=== PATIENT | male | born 1960 | race African-American/Black ===

== ENCOUNTER 2016-08-13 15:10 | Emergency (ER) | payer OTHER ==
[~2016-08-13] VITALS: Ht 182.9 cm; Wt 73.0 kg
[~2016-08-13 15:10] MED LIST: AMLO5 PO; AUGM500T7 PO; DOXY100 PO; Z.0.NO CURRENT MEDS
[2016-08-13 15:30] VITALS: BP 129/71; PULSE 88; RESP 16; TEMP 98.1; O2SAT 97
[2016-08-13] MEDS ORDERED: TRAZ100T4 PO (15:59)
[2016-08-13] MEDS ORDERED: AMLO5TAB2 PO (15:59)
[2016-08-13] MEDS ORDERED: TRAM50TA PO (15:59)
--- NOTE | 2016-08-13 16:09 | PD ---
HPI Chief Complaint: Psychiatric Symptoms Time Seen by Provider: 16:08 Travel History International Travel<30 days: No Contact w/Intl Traveler<30days: No Traveled to known affect area: No History of Present Illness HPI 55-year-old male presents to the emergency Department under Pruitt act for psychiatric evaluation. Patient reports depression for the past week. He left a message on her [employer] machine stating that he was going to kill himself. He states his plan was to overdose on pills. He states he was going to take his trazodone. However, he states he did not get a chance before the police placed him under Pruitt act. The patient states he had a suicide attempt last year in November where he overdosed on pills and was intubated. The patient states that he snorts cocaine. He states he has been drinking alcohol heavily for the past month. Patient denies any medical complaints at this time. PFSH Past Medical History Arthritis: No Asthma: No Depression: Yes Heart Rhythm Problems: No Cardiovascular Problems: No High Cholesterol: No Chest Pain: No Congestive Heart Failure: No COPD: No Cerebrovascular Accident: No Diminished Hearing: No GERD: No Genitourinary: No Hiatal Hernia: No Kidney Stones: No Musculoskeletal: No Neurologic: No Reproductive: No Respiratory: No Migraines: No Renal Failure: No Seizures: No Sleep Apnea: No Ulcer: No Past Surgical History Abdominal Surgery: No Cardiac Surgery: No Ear Surgery: No Endocrine Surgery: No Eye Surgery: No Genitourinary Surgery: No Gynecologic Surgery: No Oral Surgery: No Thoracic Surgery: No Other Surgery: Yes (INGUNIAL HERNIA) Social History Alcohol Use: Yes Tobacco Use: No (PT DENIES) Substance Use: No Allergies-Medications (Allergen,Severity, Reaction): Coded Allergies: No Known Allergies (Verified , 01/11/07) Reported Meds & Prescriptions Reported Meds & Active Scripts Active Reported Trazodone (Trazodone HCl) 100 Mg Tab 100 Mg PO HS Tramadol (Tramadol HCl) 50 Mg Tab 50 Mg PO Q6H PRN Amlodipine (Amlodipine Besylate) 5 Mg Tab 5 Mg PO DAILY Review of Systems Except as stated in HPI: all other systems reviewed are Neg Physical Exam Narrative GENERAL: Well-nourished, well-developed male patient, ambulatory. Afebrile. SKIN: Focused skin assessment warm/dry. HEAD: Normocephalic. Atraumatic. EYES: No scleral icterus. No injection or drainage. NECK: Supple, trachea midline. No JVD or lymphadenopathy. CARDIOVASCULAR: Regular rate and rhythm without murmurs, gallops, or rubs. RESPIRATORY: Breath sounds equal bilaterally. No accessory muscle use. Lungs sounds are clear to auscultation. GASTROINTESTINAL: Abdomen soft, non-tender, nondistended. MUSCULOSKELETAL: No cyanosis, or edema. PSYCHIATRIC: No delusional thought processes. No hallucinations. Data Data Last Documented VS Vital Signs Date Time Temp Pulse Resp B/P Pulse Ox O2 Delivery O2 Flow Rate FiO2 08/13/16 15:30 98.1 88 16 129/71 97 Orders Complete Blood Count With Diff (08/13/16 15:32) Basic Metabolic Panel (Bmp) (08/13/16 15:32) Psych Screen (08/13/16 15:32) Drug Screen, Random Urine (08/13/16 15:32) Alcohol (Ethanol) (08/13/16 16:03) Tylenol (Acetaminophen) (08/13/16 16:03) Comprehensive Metabolic Panel (08/13/16 16:03) Salicylates (Aspirin) (08/13/16 16:03) Ns (Bolus) Inj (08/13/16 18:15) Labs Laboratory Tests Test 08/13/16 08/13/16 08/13/16 15:36 15:40 16:18 White Blood Count 5.6 TH/MM3 Red Blood Count 5.46 MIL/MM3 Hemoglobin 15.5 GM/DL Hematocrit 45.8 % Mean Corpuscular Volume 84.0 FL Mean Corpuscular Hemoglobin 28.5 PG Mean Corpuscular Hemoglobin 33.9 % Concent Red Cell Distribution Width 13.4 % Platelet Count 207 TH/MM3 Mean Platelet Volume 8.3 FL Neutrophils (%) (Auto) 68.2 % Lymphocytes (%) (Auto) 21.7 % Monocytes (%) (Auto) 7.7 % Eosinophils (%) (Auto) 1.9 % Basophils (%) (Auto) 0.5 % Neutrophils # (Auto) 3.8 TH/MM3 Lymphocytes # (Auto) 1.2 TH/MM3 Monocytes # (Auto) 0.4 TH/MM3 Eosinophils # (Auto) 0.1 TH/MM3 Basophils # (Auto) 0.0 TH/MM3 CBC Comment DIFF FINAL Differential Comment Sodium Level 144 MEQ/L 146 MEQ/L Potassium Level 3.8 MEQ/L 4.5 MEQ/L Chloride Level 108 MEQ/L 108 MEQ/L Carbon Dioxide Level 28.8 MEQ/L 33.4 MEQ/L Anion Gap 7 MEQ/L 5 MEQ/L Blood Urea Nitrogen 19 MG/DL 20 MG/DL Creatinine 1.36 MG/DL 1.40 MG/DL Estimat Glomerular Filtration 66 ML/MIN 64 ML/MIN Rate Random Glucose 147 MG/DL 83 MG/DL Calcium Level 8.7 MG/DL 9.2 MG/DL Urine Opiates Screen NEG Urine Barbiturates Screen NEG Urine Amphetamines Screen NEG Urine Benzodiazepines Screen NEG Urine Cocaine Screen POS Urine Cannabinoids Screen NEG Total Bilirubin 0.4 MG/DL Aspartate Amino Transf 14 U/L (AST/SGOT) Alanine Aminotransferase 20 U/L (ALT/SGPT) Alkaline Phosphatase 86 U/L Total Protein 7.5 GM/DL Albumin 4.0 GM/DL Salicylates Level LESS THAN 1.7 MG/DL Acetaminophen Level LESS THAN 2.0 MCG/ML Ethyl Alcohol Level LESS THAN 3 MG/DL MDM Medical Decision Making Medical Screen Exam Complete: Yes Emergency Medical Condition: Yes Medical Record Reviewed: Yes Differential Diagnosis Suicidal ideation versus depression versus substance abuse versus anxiety Narrative Course 55-year-old male presents to the emergency Department a Pruitt act for psychiatric evaluation. Patient reports depression and suicidal ideation. CBC , CMP, alcohol level, urine drug screen, salicylate level, Tylenol level are ordered and pending. CBC is unremarkable. CMP shows elevated BUN and creatinine at 20/1.40, no acute abnormalities. Alcohol level is less than 3. UDS is positive for cocaine. Salicylate level is 1.7. Tylenol level is less than 2.0. Patient is given 1 L NS IVF for dehydration, elevated BUN/creatinine. Patient is medically cleared for psychiatric screening and disposition. Mental health screening discussed with the patient. Psychiatric screen ordered. Diagnosis Primary Impression: Depression Qualified Code: F32.9 - Depression, unspecified depression type Additional Impressions: Suicidal ideation Cocaine abuse Additional Instructions: Patient is medically cleared for psychiatric screening and disposition. Condition: Stable Chasity Mejia MARLENY August 13, 2016 16:09
[2016-08-13 16:12] LABS: AUTOMATED NEUTROPHIL # 3.8 TH/MM3 (1.8-7.7); BASOPHIL % 0.5 % (0.0-2.0); EOSINOPHIL # 0.1 TH/MM3 (0-0.4); EOSINOPHIL % 1.9 % (0.0-4.0); HEMATOCRIT 45.8 % (39.0-51.0); HEMO FLAGS DIFF FINAL; LYMPH % 21.7 % (9.0-44.0); LYMPHOCYTE # 1.2 TH/MM3 (1.0-4.8); MEAN CORPUSCULAR HEMOGLOBIN 28.5 PG (27.0-34.0); MEAN CORPUSCULAR HGB CONC 33.9 % (32.0-36.0); MONO % 7.7 % (0.0-8.0); NEUT % 68.2 % (16.0-70.0); PLATELET COUNT 207 TH/MM3 (150-450); RED BLOOD COUNT 5.46 MIL/MM3 (4.50-5.90); RED CELL DISTRIBUTION WIDTH 13.4 % (11.6-17.2); WHITE BLOOD COUNT 5.6 TH/MM3 (4.0-11.0)
[2016-08-13 16:26] LABS: BICARBONATE 28.8 MEQ/L (21.0-32.0); POTASSIUM 3.8 MEQ/L (3.5-5.1)
[2016-08-13 17:01] LABS: ANION GAP 5 MEQ/L (5-15); AST (GOT) 14 U/L (15-37); BICARBONATE 33.4 MEQ/L (21.0-32.0); BLOOD UREA NITROGEN 20 MG/DL (7-18); CHLORIDE 108 MEQ/L (98-107); GLOMERULAR FILTRATION RATE 64 ML/MIN (>89); POTASSIUM 4.5 MEQ/L (3.5-5.1); SODIUM (NA) 146 MEQ/L (136-145)
[2016-08-13 17:05] LABS: ACETAMINOPHEN LESS THAN 2.0 MCG/ML (10.0-30.0); ALKALINE PHOSPHATASE 86 U/L (45-117); ALT (GPT) 20 U/L (12-78); TOTAL BILIRUBIN ADULT 0.4 MG/DL (0.2-1.0)
[2016-08-13 17:09] LABS: AMPHETAMINE, URINE NEG (NEG); BARBITURATES, URINE NEG (NEG); COCAINE, URINE POS (NEG)
[2016-08-13] MEDS ORDERED: SODIUM CHLOR 0.9% 1000 ML INJ 1,000 ML IV ONE (18:15)
[2016-08-13 22:20] VITALS: BP 164/118; PULSE 85; RESP 17; O2SAT 98
[2016-08-13] MEDS ORDERED: amLODIPine BESYLATE 5 MG TAB PO ONE (22:45)
[2016-08-14 02:02] VITALS: BP 141/80; PULSE 65; RESP 18; O2SAT 97
[2016-08-14 06:25] VITALS: BP 151/87; PULSE 63; RESP 18; O2SAT 98
--- NOTE | 2016-08-14 12:41 | PD ---
History of Present Illness Chief Complaint: Psychiatric Symptoms Time Seen by Provider: 12:15 Travel History International Travel<30 Days: No Contact w/Intl Traveler<30days: No Known affected area: No Legal Status Legal Status: Pruitt Act Pruitt Act Signed By: Connie Pruitt Act Comment: BA signed by: MASSIMO OMALLEY Badge#[id number], Case#[id number] History of Present Illness: 55-year-old male with history of daily cocaine use for the last 6 months, presenting under a Pruitt act with suicidal threats. Patient gives a contradictory and inconsistent story. Patient provides an inconsistent and contradictory story. He states he wants to kill himself and that he is too embarrassed to ask for help but at the same time he is calling his sister to say goodbye and indicating he has a lot of people who care about him. He has spent all of his income to buy cocaine and uses it on a daily basis but he takes no responsibility for this and instead tells this physician if I don't admit him to psychiatry I will have his blood on my hands. Patient encouraged to go to [facility] because his primary problem is cocaine abuse and this facility is not licensed for rehabilitation. Patient not interested in going to [facility] and continues to threaten self-harm if he is discharged. It is noted that he is finishing his entire lunch and is not interested in killing himself or leaving at this time. PFSH Past Medical History Arthritis: No Asthma: No Depression: Yes Heart Rhythm Problems: No Cardiovascular Problems: No High Cholesterol: No Chest Pain: No Congestive Heart Failure: No COPD: No Cerebrovascular Accident: No Diminished Hearing: No GERD: No Genitourinary: No Hiatal Hernia: No Kidney Stones: No Musculoskeletal: No Neurologic: No Reproductive: No Respiratory: No Migraines: No Renal Failure: No Seizures: No Sleep Apnea: No Ulcer: No Past Surgical History Abdominal Surgery: No Cardiac Surgery: No Ear Surgery: No Endocrine Surgery: No Eye Surgery: No Genitourinary Surgery: No Gynecologic Surgery: No Oral Surgery: No Thoracic Surgery: No Other Surgery: Yes (INGUNIAL HERNIA) Psychiatric History Psychiatric History Hx Psychiatric Treatment: Yes. Patient has a history of substance abuse treatment and has been using drugs intermittently for years. History of Inpatient Treatment: Yes Guns or firearms in home: No Social History Hx Alcohol Use: Yes Hx Tobacco Use: No (PT DENIES) Hx Substance Use: No Substance Use Type: Crack Other Substances Used: Pt says he has been using crack fro the last 6 months everyday. Hx of Substance Use Treatment: Yes Allergies-Medications (Allergen,Severity, Reaction): Coded Allergies: No Known Allergies (Verified , 01/11/07) Reported Meds & Prescriptions Reported Meds & Active Scripts Active Reported Trazodone (Trazodone HCl) 100 Mg Tab 100 Mg PO HS Tramadol (Tramadol HCl) 50 Mg Tab 50 Mg PO Q6H PRN Amlodipine (Amlodipine Besylate) 5 Mg Tab 5 Mg PO DAILY Review of Systems ROS Limitations: Uncooperative Exam Alert: Yes [place]: Person, Place, Date, Situation Mood: Oppositional Affect: Appropriate Speech: Clear, Logical Eye Contact: Normal Memory Intact: Immediate, Recent, Remote Suicidal: Plan Insight/Judgement Adequate except with regard to drug abuse. MDM Medical Decision Making Medical Record Reviewed: Yes Assessment/Plan This physician spoke with the patient and the patient's nurse. Patient remains threatening to harm himself if released. This physician feels it is counter therapeutic to admit patient under the circumstances. Patient needs drug treatment and takes no responsibility or acknowledgment for his use of drugs on a daily basis. Even though the patient is still at risk for acting out, this physician feels it is counter therapeutic to admit him. He was provided with bus pass and referral to [facility]. Orders Complete Blood Count With Diff (08/13/16 15:32) Basic Metabolic Panel (Bmp) (08/13/16 15:32) Psych Screen (08/13/16 15:32) Drug Screen, Random Urine (08/13/16 15:32) Alcohol (Ethanol) (08/13/16 16:03) Tylenol (Acetaminophen) (08/13/16 16:03) Comprehensive Metabolic Panel (08/13/16 16:03) Salicylates (Aspirin) (08/13/16 16:03) Sodium Chlor 0.9% 1000 Ml Inj (Ns 1000 M (08/13/16 18:15) Diet Regular Basic (08/14/16 Breakfast) Amlodipine (Norvasc) (08/13/16 22:45) Diet Regular Basic (08/14/16 Lunch) Results Vital Signs Date Time Temp Pulse Resp B/P Pulse Ox O2 Delivery O2 Flow Rate FiO2 08/14/16 06:25 63 18 151/87 98 Room Air 08/14/16 02:02 65 18 141/80 97 Room Air 08/13/16 22:20 85 17 164/118 98 Room Air 08/13/16 15:30 98.1 88 16 129/71 97 Laboratory Tests Test 08/13/16 08/13/16 08/13/16 15:36 15:40 16:18 White Blood Count 5.6 Red Blood Count 5.46 Hemoglobin 15.5 Hematocrit 45.8 Mean Corpuscular Volume 84.0 Mean Corpuscular Hemoglobin 28.5 Mean Corpuscular Hemoglobin 33.9 Concent Red Cell Distribution Width 13.4 Platelet Count 207 Mean Platelet Volume 8.3 Neutrophils (%) (Auto) 68.2 Lymphocytes (%) (Auto) 21.7 Monocytes (%) (Auto) 7.7 Eosinophils (%) (Auto) 1.9 Basophils (%) (Auto) 0.5 Neutrophils # (Auto) 3.8 Lymphocytes # (Auto) 1.2 Monocytes # (Auto) 0.4 Eosinophils # (Auto) 0.1 Basophils # (Auto) 0.0 CBC Comment DIFF FINAL Differential Comment Sodium Level 144 146 Potassium Level 3.8 4.5 Chloride Level 108 108 Carbon Dioxide Level 28.8 33.4 Anion Gap 7 5 Blood Urea Nitrogen 19 20 Creatinine 1.36 1.40 Estimat Glomerular Filtration 66 64 Rate Random Glucose 147 83 Calcium Level 8.7 9.2 Urine Opiates Screen NEG Urine Barbiturates Screen NEG Urine Amphetamines Screen NEG Urine Benzodiazepines Screen NEG Urine Cocaine Screen POS Urine Cannabinoids Screen NEG Total Bilirubin 0.4 Aspartate Amino Transf 14 (AST/SGOT) Alanine Aminotransferase 20 (ALT/SGPT) Alkaline Phosphatase 86 Total Protein 7.5 Albumin 4.0 Salicylates Level LESS THAN 1.7 Acetaminophen Level LESS THAN 2.0 Ethyl Alcohol Level LESS THAN 3 Diagnosis Primary Impression: Depression Additional Impressions: Cocaine abuse Suicidal ideation Additional Instructions: Patient is medically cleared for psychiatric screening and disposition. Condition: Stable Problem Qualifiers Primary Impression: Depression Qualified Code: F32.9 - Depression, unspecified depression type Paulo Coleman MD August 14, 2016 12:40
[2016-08-14 13:25] VITALS: BP 151/87; PULSE 63; RESP 18; O2SAT 98
== END 2016-08-14 13:39 | disposition home or self-care (01) ==
LOC: NEPC 15:10 → NEPJ 08-14 13:39
DX: F32.9 Major depressive disorder, single episode, unspecified (principal); R45.851 Suicidal ideations; F14.10 Cocaine abuse, uncomplicated
CPT/HCPCS: 80053; 80307; 85025; 99285; J7030; 80048

== ENCOUNTER 2016-12-13 09:03 | Observation (INO) | payer OTHER ==
[~2016-12-13] VITALS: Ht 182.9 cm; Wt 80.0 kg
[~2016-12-13 09:03] MED LIST changes: -AMLO5 PO; +AMLO5TAB2 PO; -AUGM500T7 PO; -DOXY100 PO; +TRAM50TA PO; +TRAZ100T4 PO; -Z.0.NO CURRENT MEDS
[2016-12-13 09:05] VITALS: BP 143/95; PULSE 109; RESP 18; TEMP 98.6
[2016-12-13] MEDS ORDERED: SODIUM CHLORIDE 0.9% FLUSH 10 ML FLUSH IVF PRN (09:15)
[2016-12-13] MEDS ORDERED: ACETAMINOPHEN 325 MG TAB PO ONE (09:15)
[2016-12-13] MEDS ORDERED: DICL1GEL7 TOPICAL (09:23)
[2016-12-13] MEDS ORDERED: MIRT1TAB PO (09:23)
[2016-12-13] MEDS ORDERED: AMLO10TA2 PO (09:23)
[2016-12-13] MEDS ORDERED: ENAL20TA PO (09:23)
[2016-12-13] MEDS ORDERED: LAMO100T PO (09:23)
[2016-12-13] MEDS ORDERED: ASPI81CH CHEW (09:23)
[2016-12-13] MEDS ORDERED: OMEP20TA PO (09:23)
[2016-12-13] MEDS ORDERED: SILD20TA11 PO (09:23)
[2016-12-13] MEDS ORDERED: TRAZ100T6 PO (09:23)
[2016-12-13] MEDS ORDERED: PARO40TA2 PO (09:23)
[2016-12-13] MEDS ORDERED: SENN8.6T81 PO (09:23)
[2016-12-13] MEDS ORDERED: CALCTAB33 PO (09:23)
[2016-12-13] MEDS ORDERED: GABA100C4 PO (09:23)
[2016-12-13 09:31] LABS: AUTOMATED NEUTROPHIL # 3.8 TH/MM3 (1.8-7.7); BASOPHIL % 0.4 % (0.0-2.0); EOSINOPHIL # 0.1 TH/MM3 (0-0.4); EOSINOPHIL % 2.1 % (0.0-4.0); HEMATOCRIT 37.5 % (39.0-51.0); HEMO FLAGS DIFF FINAL; LYMPH % 27.8 % (9.0-44.0); LYMPHOCYTE # 1.8 TH/MM3 (1.0-4.8); MEAN CORPUSCULAR HEMOGLOBIN 29.4 PG (27.0-34.0); MEAN CORPUSCULAR HGB CONC 35.4 % (32.0-36.0); MONO % 10.1 % (0.0-8.0); NEUT % 59.6 % (16.0-70.0); PLATELET COUNT 202 TH/MM3 (150-450); RED BLOOD COUNT 4.52 MIL/MM3 (4.50-5.90); WHITE BLOOD COUNT 6.4 TH/MM3 (4.0-11.0)
--- NOTE | 2016-12-13 09:34 | RADRPT ---
EXAM DATE/TIME: 12/13/2016 09:29 [facility] COMPARISON: No previous studies available for comparison. INDICATIONS : Chest pain. MEDICAL HISTORY : Hypertension. Diabetes mellitus type II. Carcinoma, prostatic. SURGICAL HISTORY : None. ENCOUNTER: Initial ACUITY: 1 day PAIN SCORE: 2/10 LOCATION: chest midline. FINDINGS: A single view of the chest demonstrates the lungs to be symmetrically aerated without evidence of mas s, infiltrate or effusion. The cardiomediastinal contours are unremarkable. Osseous structures are intact. CONCLUSION: No acute disease. Román Snyder MD on December 13, 2016 at 9:33 Board Certified Radiologist. This report was verified electronically.
[2016-12-13 09:40] LABS: APTT (PATIENT) 23.8 SEC (24.3-30.1); INTERNATIONAL NORMALIZED RATIO 0.9 RATIO
[2016-12-13 09:45] LABS: ANION GAP 5 MEQ/L (5-15); BICARBONATE 29.9 MEQ/L (21.0-32.0); CHLORIDE 102 MEQ/L (98-107); MAGNESIUM 2.1 MG/DL (1.5-2.5); POTASSIUM 4.1 MEQ/L (3.5-5.1); SODIUM (NA) 137 MEQ/L (136-145)
--- NOTE | 2016-12-13 10:01 | PD ---
HPI Chief Complaint: Chest Pain Time Seen by Provider: 09:14 Travel History International Travel<30 days: No Contact w/Intl Traveler<30days: No Traveled to known affect area: No History of Present Illness HPI 56-year-old male came to the emergency room with history of chest pain that is left-sided and radiating down his left arm. Patient says that he was at his primary care's clinic at the [facility] when he mentioned about this pain and he was asked to come to the emergency room. Currently patient says he's chest pain -free. He was given 2 nitroglycerin on route by the EMS which has given him a headache. He took 3 of 325 mg aspirin on his own. Patient says that he has never had this kind of pain before. He used to smoke crack cocaine and did it on and off for 20 years but stopped doing it over past 6 months. He has never had a stress test or heart catheterization. Patient has hypertension and borderline diabetes. He is not on any medications currently for the diabetes. His blood sugar was over 200 when checked by EMS. Patient is not a smoker. He was slightly tachycardic when he arrived. [facility] Past Medical History Narrative Medical List of his past medical, surgical, social and family history is reviewed from the nursing note. Arthritis: No Asthma: No Depression: Yes Heart Rhythm Problems: No Cardiovascular Problems: Yes High Cholesterol: No Chest Pain: No Congestive Heart Failure: No COPD: No Cerebrovascular Accident: No Diabetes: Yes Patient Takes Glucophage: No Diminished Hearing: No GERD: No Genitourinary: No Hiatal Hernia: No Hypertension: Yes Kidney Stones: No Musculoskeletal: No Neurologic: No Reproductive: No Respiratory: No Migraines: No Renal Failure: No Seizures: No Sleep Apnea: No Ulcer: No Past Surgical History Abdominal Surgery: No Cardiac Surgery: No Ear Surgery: No Endocrine Surgery: No Eye Surgery: No Genitourinary Surgery: No Gynecologic Surgery: No Oral Surgery: No Thoracic Surgery: No Social History Alcohol Use: Yes Tobacco Use: No (PT DENIES) Substance Use: Yes Allergies-Medications (Allergen,Severity, Reaction): Coded Allergies: No Known Allergies (Verified , 01/11/07) Comments No known drug allergies. Reported Meds & Prescriptions Reported Meds & Active Scripts Active Reported Trazodone (Trazodone HCl) 100 Mg Tablet 100 Mg PO HS Sildenafil 20 Mg Tab 20 Mg PO TID PRN Sennosides 8.6 Mg Tab 8.6 Mg PO HS Paroxetine (Paroxetine HCl) 40 Mg Tab 20 Mg PO DAILY Omeprazole 20 Mg Tab 20 Mg PO DAILY Mirtazapine 7.5 Mg Tab 7.5 Mg PO HS Lamotrigine 100 Mg Tab 50 Mg PO DAILY Gabapentin 100 Mg Cap 200 Mg PO HS Enalapril (Enalapril Maleate) 20 Mg Tab 20 Mg PO DAILY Diclofenac Topical 1% Gel 1 Applic TOPICAL QID Calcium 600+D Plus Minerals (Calcium Carbonate-Vitamin D W/Minerals) 600-400 Mg- Unit Tab 1 Tab PO DAILY Aspirin 81 Mg Chew 81 Mg CHEW DAILY Amlodipine (Amlodipine Besylate) 10 Mg Tab 10 Mg PO DAILY Narrative Medication List of his home medications reviewed from the nursing note. Review of Systems Except as stated in HPI: all other systems reviewed are Neg Physical Exam Narrative GENERAL: Awake, alert, anxious, no obvious distress SKIN: Focused skin assessment warm/dry. HEAD: Atraumatic. Normocephalic. EYES: Pupils equal and round. No scleral icterus. No injection or drainage. ENT: No nasal bleeding or discharge. Mucous membranes pink and moist. NECK: Trachea midline. No JVD. CARDIOVASCULAR: Regular rate and rhythm. No murmur appreciated. RESPIRATORY: No accessory muscle use. Clear to auscultation. Breath sounds equal bilaterally. GASTROINTESTINAL: Abdomen soft, non-tender, nondistended. Hepatic and splenic margins not palpable. MUSCULOSKELETAL: No obvious deformities. No clubbing. No cyanosis. No edema. NEUROLOGICAL: Awake and alert. No obvious cranial nerve deficits. Motor grossly within normal limits. Normal speech. PSYCHIATRIC: Appropriate mood and affect; insight and judgment normal. Data Data Last Documented VS Vital Signs Date Time Temp Pulse Resp B/P (MAP) Pulse Ox O2 Delivery O2 Flow Rate FiO2 12/13/16 11:00 90 16 142/77 (98) 97 Room Air 12/13/16 09:05 98.6 Orders Orders Electrocardiogram (12/13/16 09:14) Basic Metabolic Panel (Bmp) (12/13/16 09:14) Ckmb (Isoenzyme) Profile (12/13/16 09:14) Complete Blood Count With Diff (12/13/16 09:14) Magnesium (Mg) (12/13/16 09:14) Prothrombin Time / Inr (Pt) (12/13/16 09:14) Act Partial Throm Time (Ptt) (12/13/16 09:14) Troponin I (12/13/16 09:14) Chest, Single Ap (12/13/16 09:14) Ecg Monitoring (12/13/16 09:14) Bilateral Bp Monitoring (12/13/16 09:14) Iv Access Insert/Monitor (12/13/16 09:14) Oximetry (12/13/16 09:14) Oxygen Administration (12/13/16 09:14) Sodium Chloride 0.9% Flush (Ns Flush) (12/13/16 09:15) Acetaminophen (Tylenol) (12/13/16 09:15) CKMB (12/13/16 09:15) CKMB% (12/13/16 09:15) Sodium Chlor 0.9% 1000 Ml Inj (Ns 1000 M (12/13/16 11:00) Metformin (Glucophage) (12/13/16 11:00) Admit Order (Ed Use Only) (12/13/16 11:00) Labs Laboratory Tests Test 12/13/16 09:15 White Blood Count 6.4 TH/MM3 Red Blood Count 4.52 MIL/MM3 Hemoglobin 13.3 GM/DL Hematocrit 37.5 % Mean Corpuscular Volume 83.0 FL Mean Corpuscular Hemoglobin 29.4 PG Mean Corpuscular Hemoglobin Concent 35.4 % Red Cell Distribution Width 13.0 % Platelet Count 202 TH/MM3 Mean Platelet Volume 8.0 FL Neutrophils (%) (Auto) 59.6 % Lymphocytes (%) (Auto) 27.8 % Monocytes (%) (Auto) 10.1 % Eosinophils (%) (Auto) 2.1 % Basophils (%) (Auto) 0.4 % Neutrophils # (Auto) 3.8 TH/MM3 Lymphocytes # (Auto) 1.8 TH/MM3 Monocytes # (Auto) 0.6 TH/MM3 Eosinophils # (Auto) 0.1 TH/MM3 Basophils # (Auto) 0.0 TH/MM3 CBC Comment DIFF FINAL Differential Comment Prothrombin Time 10.0 SEC Prothromb Time International Ratio 0.9 RATIO Activated Partial Thromboplast Time 23.8 SEC Blood Urea Nitrogen 18 MG/DL Creatinine 1.15 MG/DL Random Glucose 249 MG/DL Calcium Level 8.8 MG/DL Magnesium Level 2.1 MG/DL Sodium Level 137 MEQ/L Potassium Level 4.1 MEQ/L Chloride Level 102 MEQ/L Carbon Dioxide Level 29.9 MEQ/L Anion Gap 5 MEQ/L Estimat Glomerular Filtration Rate 80 ML/MIN Total Creatine Kinase 173 U/L Creatine Kinase MB 0.8 NG/ML Troponin I LESS THAN 0.02 NG/ML MDM Medical Decision Making Medical Screen Exam Complete: Yes Emergency Medical Condition: Yes Medical Record Reviewed: Yes Interpretation(s) Twelve-lead EKG was reviewed by me. Normal sinus rhythm, normal axis, nonspecific ST-T wave changes, tachycardia. Heart rate of 104 bpm. Differential Diagnosis ACS, non-STEMI, nonspecific chest pain Narrative Course 10:58 AM patient has significant risk factors including diabetes and hypertension. His blood sugar is elevated today and I started him on metformin. Patient also has a long history of cocaine abuse in the past. All these are high risk factors for ACS. I would like to bring him into the chest pain center to rule out ACS. He was given Tylenol for his headache which was most probably nitroglycerin-induced. Procedures EKG Prior to Arrival: Yes Diagnosis Primary Impression: Chest pain Qualified Codes: R07.9 - Chest pain, unspecified Additional Impression: Hyperglycemia Admitting Information Admitting Physician Requests: Ceci Brian MD Dec 13, 2016 10:01
[2016-12-13 10:47] LABS: BLOOD UREA NITROGEN 18 MG/DL (7-18); CREATINE KINASE 173 U/L (39-308); GLOMERULAR FILTRATION RATE 80 ML/MIN (>89)
[2016-12-13 11:00] VITALS: BP 142/77; PULSE 90; RESP 16; O2SAT 97
[2016-12-13] MEDS ORDERED: metFORMIN HCL 500 MG TAB PO ONE (11:00)
[2016-12-13] MEDS ORDERED: SODIUM CHLOR 0.9% 1000 ML INJ 1,000 ML IV ONE (11:00)
--- NOTE | 2016-12-13 12:36 | HHI.HP ---
HPI Primary Care Physician [facility] Chief Complaint Chest pain History of Present Illness This is a 56-year-old male with history of hypertension, GERD, prostate cancer that presents to ED with a complaint of developing a sharp central chest discomfort [place] health specialist. States last about 25 minutes. Denies association shortness breath, nausea, or diaphoresis. The discomfort was about an 8 out of 10. He states he was started to taper down, was given subluminal nitroglycerin which seemed to help even more. The discomfort has not recurred. Denies history of CAD. Cannot recall ever having a stress test. Denies recent illness. Review of Systems General: Patient denies fevers, chills recent, and recent travel HEENT: Patient denies headache, sore throat, difficulty swallowing. Cardiovascular: Has the chest discomfort as mentioned above. Denies sensation of heart beating rapidly or irregularly. No syncope. Denies diaphoresis. Respiratory: Denies shortness of breath or inspirational chest discomfort. Denies coughing wheezing or hemoptysis. GI: Patient denies nausea, vomiting, diarrhea, abdominal pain, bloody stools. Musculoskeletal: Patient denies joint pain or edema. Denies calf pain or edema. Neurovascular: Patient denies numbness, tingling, weakness in extremities. Denies headache. Endocrine: Denies polyuria and polydipsia. Hematologic: Denies easy bruising. Skin: Denies rash or itching. Past Family Social History Allergies: Coded Allergies: No Known Allergies (Verified , 01/11/07) Past Medical History Hypertension, GERD, prostate cancer undergoing chemotherapy and soon to start radiation therapy. Had prostatectomy. Also complains of chronic back pain stating he has degenerative disc disease. Denies diabetes, CAD, and hyperlipidemia Past Surgical History Prostatectomy. Reported Medications Reported Meds & Active Scripts Active Reported Trazodone (Trazodone HCl) 100 Mg Tablet 100 Mg PO HS Sildenafil 20 Mg Tab 20 Mg PO TID PRN Sennosides 8.6 Mg Tab 8.6 Mg PO HS Paroxetine (Paroxetine HCl) 40 Mg Tab 20 Mg PO DAILY Omeprazole 20 Mg Tab 20 Mg PO DAILY Mirtazapine 7.5 Mg Tab 7.5 Mg PO HS Lamotrigine 100 Mg Tab 50 Mg PO DAILY Gabapentin 100 Mg Cap 200 Mg PO HS Enalapril (Enalapril Maleate) 20 Mg Tab 20 Mg PO DAILY Diclofenac Topical 1% Gel 1 Applic TOPICAL QID Calcium 600+D Plus Minerals (Calcium Carbonate-Vitamin D W/Minerals) 600-400 Mg- Unit Tab 1 Tab PO DAILY Aspirin 81 Mg Chew 81 Mg CHEW DAILY Amlodipine (Amlodipine Besylate) 10 Mg Tab 10 Mg PO DAILY Active Ordered Medications Current Medications Medications (Trade) Dose Ordered Sig/Renetta Route Start Time Stop Time Status Last Admin (NS Flush) 2 ml UNSCH PRN IVF 12/13/16 09:15 (NS Flush) 2 ml UNSCH PRN IVF 12/13/16 12:30 UNV (NS Flush) 2 ml BID IVF 12/13/16 21:00 UNV (Tylenol) 500 mg Q4H PRN PO 12/13/16 12:30 UNV ([facility] 7.5-325 Mg) 1 tab Q4H PRN PO 12/13/16 12:30 UNV (Zofran Inj) 4 mg Q6H PRN IV 12/13/16 12:30 UNV (Aspirin) 325 mg DAILY PO 12/14/16 09:00 UNV (Norvasc) 10 mg DAILY PO 12/13/16 12:30 UNV (Vasotec) 20 mg DAILY PO 12/14/16 09:00 UNV (Neurontin) 200 mg HS PO 12/13/16 21:00 UNV (LaMICtal) 50 mg DAILY PO 12/14/16 09:00 UNV (Remeron) 7.5 mg HS PO 12/13/16 21:00 UNV (Paxil) 20 mg DAILY PO 12/14/16 09:00 UNV Non-Formulary Medication 20 mg DAILY PO 12/13/16 12:30 UNV Non-Formulary Medication 100 mg HS PO 12/13/16 21:00 UNV Family History Denies family history of CAD. Social History Patient has never smoked tobacco products. He used to use cocaine and other illicit drugs but states she's had nothing for 5 months. He has on average 5 beers a week. Physical Exam Vital Signs Vital Signs Date Time Temp Pulse Resp B/P (MAP) Pulse Ox O2 Delivery O2 Flow Rate FiO2 12/13/16 11:00 90 16 142/77 (98) 97 Room Air 12/13/16 09:08 106 18 96 Room Air 12/13/16 09:05 98.6 109 18 143/95 (111) Physical Exam GENERAL: This is a well-nourished, well-developed patient, in no apparent distress. Patient speaks in clear complete sentences. Patient is pleasant. HEENT: Head is atraumatic and normocephalic. Neck is supple without lymphadenopathy and trachea is midline. No JVD or carotid bruits. CARDIOVASCULAR: Regular rate and rhythm without murmurs, gallops, or rubs. RESPIRATORY: Clear to auscultation. Breath sounds equal bilaterally. No wheezes , rales, or rhonchi. Chest wall is nontender. No use of accessory muscles. GASTROINTESTINAL: Abdomen is nontender, nondistended. Abdomen soft. No obvious pulsatile mass or bruit. No CVA tenderness. Strong femoral pulses bilaterally. Normal bowel sounds in all quadrants. MUSCULOSKELETAL: Patient is moving upper and lower extremities freely. No calf tenderness or edema, no Homans sign. Strong pulses in upper and lower extremities. NEUROLOGICAL: Patient is alert and oriented. Cranial nerves 2-12 are grossly intact. No focal deficits and speech is clear. SKIN: No rash and turgor is normal. Laboratory Laboratory Tests Test 12/13/16 09:15 12/13/16 12:00 White Blood Count 6.4 Red Blood Count 4.52 Hemoglobin 13.3 Hematocrit 37.5 Mean Corpuscular Volume 83.0 Mean Corpuscular Hemoglobin 29.4 Mean Corpuscular Hemoglobin Concent 35.4 Red Cell Distribution Width 13.0 Platelet Count 202 Mean Platelet Volume 8.0 Neutrophils (%) (Auto) 59.6 Lymphocytes (%) (Auto) 27.8 Monocytes (%) (Auto) 10.1 Eosinophils (%) (Auto) 2.1 Basophils (%) (Auto) 0.4 Neutrophils # (Auto) 3.8 Lymphocytes # (Auto) 1.8 Monocytes # (Auto) 0.6 Eosinophils # (Auto) 0.1 Basophils # (Auto) 0.0 CBC Comment DIFF FINAL Differential Comment Prothrombin Time 10.0 Prothromb Time International Ratio 0.9 Activated Partial Thromboplast Time 23.8 Blood Urea Nitrogen 18 Creatinine 1.15 Random Glucose 249 Calcium Level 8.8 Magnesium Level 2.1 Sodium Level 137 Potassium Level 4.1 Chloride Level 102 Carbon Dioxide Level 29.9 Anion Gap 5 Estimat Glomerular Filtration Rate 80 Total Creatine Kinase 173 Troponin I LESS THAN 0.02 Result Diagram: 12/13/1691412/13/16914 Imaging Last 48 hours Impressions Chest X-Ray 12/13/16913 Signed Impressions: Service Date/Time: November 09:29 - CONCLUSION: No acute disease. Román Snyder MD Course Initial EKG sinus tachycardia rate 104 with nonspecific lateral T-wave changes. Caprini VTE Risk Assessment Caprini VTE Risk Assessment: Mod/High Risk (score >= 2) Caprini Risk Assessment Model Point Value = 1 Point Value = 2 Point Value = 3 Point Value = 5 Age 41-60 Minor surgery BMI > 25 kg/m2 Swollen legs Varicose veins or History of unexplained or recurrent spontaneous Oral contraceptives or hormone replacement Sepsis (< 1 month) Serious lung disease, including pneumonia (< 1 month) Abnormal pulmonary function Acute myocardial infarction Congestive heart failure (< 1 month) History of inflammatory bowel disease Medical patient at bed rest Age 61-74 Arthroscopic surgery Major open surgery (> 45 min) Laparoscopic surgery (> 45 min) Malignancy Confined to bed (> 72 hours) Immobilizing plaster cast Central venous access Age >= 75 History of VTE Family history of VTE Factor V Leiden Prothrombin [id number] Lupus anticoagulant Anticardiolipin antibodies Elevated serum homocysteine Heparin-induced thrombocytopenia Other congenital or acquired thrombophilia Stroke (< 1 month) Elective arthroplasty Hip, pelvis, or leg fracture Acute spinal cord injury (< 1 month) Prophylaxis Regimen Total Risk Factor Score Risk Level Prophylaxis Regimen 0-1 Low Early ambulation 2 Moderate Order ONE of the following: *Sequential Compression Device (SCD) *Heparin 5000 units SQ BID 3-4 Higher Order ONE of the following medications: *Heparin 5000 units SQ TID *Enoxaparin/Lovenox 40 mg SQ daily (WT < 150 kg, CrCl > 30 mL/min) *Enoxaparin/Lovenox 30 mg SQ daily (WT < 150 kg, CrCl > 10-29 mL/min) *Enoxaparin/Lovenox 30 mg SQ BID (WT < 150 kg, CrCl > 30 mL/min) AND/OR *Sequential Compression Device (SCD) 5 or more Highest Order ONE of the following medications: *Heparin 5000 units SQ TID (Preferred with Epidurals) *Enoxaparin/Lovenox 40 mg SQ daily (WT < 150 kg, CrCl > 30 mL/min) *Enoxaparin/Lovenox 30 mg SQ daily (WT < 150 kg, CrCl > 10-29 mL/min) *Enoxaparin/Lovenox 30 mg SQ BID (WT < 150 kg, CrCl > 30 mL/min) AND *Sequential Compression Device (SCD) Assessment and Plan Assessment and Plan * Chest pain: Patient has had first set of cardiac enzymes and EKG. He has been seen by Dr. Rondon of cardiology and the chest pain center and will undergo a Lexiscan myocardial perfusion stress test. He'll be discharged home if stress test is nonischemic. * Hypertension: Continue current medication. * GERD: Continue current medication. * Prostate cancer: Continue follow-up with his oncologist. * Hyperglycemia: Patient follow-up with PCP. Have hemoglobin A1c. Patient is stable at this time. He is agreeable to this plan. Colin Ibrahim Dec 13, 2016 12:36
[2016-12-13 12:37] LABS: CKMB 0.8 NG/ML (0.5-3.6)
[2016-12-13] MEDS ORDERED: PANTOPRAZOLE SOD 20 MG DELAYED RELEASE TAB PO SCH (13:30)
[2016-12-13] MEDS ORDERED: SODIUM CHLORIDE 0.9% FLUSH 5 ML FLUSH IVF PRN (14:00)
[2016-12-13] MEDS ORDERED: ONDANSETRON HCL 4 MG/2 ML VIAL IV PRN (14:00)
[2016-12-13] MEDS ORDERED: PILL SPLITTER OTHER PRN (14:00)
[2016-12-13] MEDS ORDERED: ACETAMINOPHEN/HYDROcodone 325 MG/7.5 MG TAB PO PRN (14:00)
[2016-12-13] MEDS ORDERED: ACETAMINOPHEN 500 MG CPLT PO PRN (14:00)
[2016-12-13] MEDS ORDERED: REGADENOSON INJ 0.4 MG/5 ML SYR ONE (15:09)
--- NOTE | 2016-12-13 15:24 | EKG ---
Date Performed: 12/13/2016 Time Performed: 09:11:05 PTAGE: 56 years EKG: SINUS TACHYCARDIA NONSPECIFIC T-WAVE ABNORMALITY ABNORMAL RHYTHM ECG PREVIOUS TRACING : 01/11/2007 12.57 Compared to prior tracing no significant change DOCTOR: Shay Sweeney Interpretating Date/Time 12/13/2016 15:22:18
--- NOTE | 2016-12-13 16:33 | RADRPT ---
EXAM DATE/TIME: 12/13/2016 14:17 [place] COMPARISON: No previous studies available for comparison. INDICATIONS : Left sided chest pain radiating to left arm for 1 day. Angina. DOSE: 25.8 mCi Tc99m Myoview at stress. 8.5 mCi Tc99m Myoview at rest. 0.4 mg Lexiscan STRESS SYMPTOMS: Nausea. EJECTION FRACTION: 44% MEDICAL HISTORY : Diabetes mellitus type 2. Hypertension. SURGICAL HISTORY : Inguinal hernia repair. ENCOUNTER: Initial ACUITY: 1 day PAIN SCALE: 3/10 LOCATION: Left chest TECHNIQUE: The patient underwent pharmacologic stress with infusion of prescribed dose. Continuous ECG tracing was monitored during stress. Gated SPECT imaging was performed after stress and conventional SPECT i maging was performed at rest. The examination was performed on a SPECT/CT scanner, both attenuation and non-corrected datasets were reviewed. FINDINGS: DISTRIBUTION: The maximum perfused segment at stress is in the anteroseptal wall. PERFUSION STUDY: The pattern of perfusion at stress is within normal limits. GATED STUDY: There is intact wall motion and thickening without hypokinetic or dyskinetic segments. CONCLUSION: 1. No reversible perfusion defect to suggest stress-induced myocardial ischemia identified. RISK CATEGORY: Low (<1% Annual Mortality Rate) Poncho Coleman MD on December 13, 2016 at 16:20 Board Certified Radiologist. This report was verified electronically.
--- NOTE | 2016-12-13 16:42 | HHI.DCPOC ---
Discharge Care Plan Diagnosis: (1) Hypertension (2) Chest pain (3) Hyperglycemia Goals to Promote Your Health * To prevent worsening of your condition and complications * To maintain your health at the optimal level Directions to Meet Your Goals Take your medications as prescribed Follow your dietary instruction Follow activity as directed Keep your appointments as scheduled Take your immunizations and boosters as scheduled If your symptoms worsen call your PCP, if no PCP go to Urgent Care Center or Emergency Room Smoking is Dangerous to Your Health. Avoid second hand smoke Call the 24-hour hour crisis hotline for domestic abuse at Colin Ibrahim Dec 13, 2016 16:42
[2016-12-13] MEDS ORDERED: MIRTAZAPINE 15 MG TAB PO SCH (21:00)
[2016-12-13] MEDS ORDERED: GABAPENTIN 100 MG CAP PO SCH (21:00)
[2016-12-13] MEDS ORDERED: SODIUM CHLORIDE 0.9% FLUSH 5 ML FLUSH IVF SCH (21:00)
[2016-12-13] MEDS ORDERED: traZODone HCL 100 MG TAB PO SCH (21:00)
[2016-12-14] MEDS ORDERED: ASPIRIN 325 MG TAB PO SCH (09:00)
[2016-12-14] MEDS ORDERED: lamoTRIgine 25 MG TAB PO SCH (09:00)
[2016-12-14] MEDS ORDERED: PARoxetine HCL 20 MG TAB PO SCH (09:00)
[2016-12-14] MEDS ORDERED: ENALAPRIL MALEATE 10 MG TAB PO SCH (09:00)
--- NOTE | 2016-12-14 14:27 | TR ---
Date Performed: 12/13/2016 Time Performed: 15:08:54 DOCTOR: Michael Rivas DRUG LIST: CLINICAL HISTORY: CHEST PAIN REASON FOR TEST: REASON FOR ENDING: OBSERVATION: CONCLUSION: Lexiscan stress test was performed under standard four minute protocol. Radionuclid e was injected one minute prior to ending the test. No electrocardiographic abormalities were present to suggest ischemia. Nuclear imaging and interpretation are pending. COMMENTS:
--- NOTE | 2016-12-14 16:55 | EKG ---
Date Performed: 12/13/2016 Time Performed: 12:00:37 PTAGE: 56 years EKG: Sinus rhythm NORMAL ECG Since PREVIOUS TRACING , no significant change noted DOCTOR: Liz Flores Interpretating Date/Time 12/14/2016 16:53:11
== END 2016-12-13 16:54 | disposition home or self-care (01) ==
LOC: NEPE 09:03 → NEDA 11:01 → NEPGCP 14:34
PROVIDERS: ADMIT Internal Medicine Interventional Cardiology; ATTEND Internal Medicine Interventional Cardiology
DX: R07.9 Chest pain, unspecified (principal); I10 Essential (primary) hypertension; R51 Headache; R73.03 Prediabetes; R00.0 Tachycardia, unspecified; C61 Malignant neoplasm of prostate; M54.9 Dorsalgia, unspecified; K21.9 Gastro-esophageal reflux disease without esophagitis; G89.29 Other chronic pain; R94.31 Abnormal electrocardiogram [ECG] [EKG]
CPT/HCPCS: 71010; 78452; 80048; 82550; 82552; 83735; 84484; 85025; 85610; 85730; 93005; 93017; 96360; 99285; A9502; G0378; J2785; J7030